=== PATIENT | male | born 1995 | race Caucasian/White ===

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

== ENCOUNTER 2017-03-09 18:59 | Emergency (ER) | payer OTHER ==
[~2017-03-09] VITALS: Ht 190.5 cm; Wt 74.3 kg
[2017-03-09 19:05] VITALS: TEMP 39.3; Ht 190.5 cm; Wt 74.3 kg
[2017-03-09] MEDS ORDERED: SODIUM CHLORIDE 0.9% 1000ML 1,000 ML IV STA (19:17)
[2017-03-09] MEDS ORDERED: CHLO1TAB50 PO (20:04)
[2017-03-09] MEDS ORDERED: IBUPROFEN 600 MG TAB PO STA (20:09)
[2017-03-09] MEDS ORDERED: ACETAMINOPHEN 500 MG TAB PO STA (20:09)
[2017-03-09 20:45] LABS: INFLUENZA B ANTIGEN Neg for Influ B (NEG)
[2017-03-09 21:18] VITALS: BP 115/50; PULSE 87; O2SAT 97
--- NOTE | 2017-03-09 23:40 | EMERGENCY ROOM VISIT NOTE ---
History Report prepared by Arnoldo: Rebecca Patel Under the Supervision of: Dr. Papo Powell M.D. First contact with patient: 19:08 Chief Complaint: ILLNESS Stated Complaint: DIZZY,ACHING ALL OVER,DEHYDRATED,NAUSEA,COUGH,FRANK History of Present Illness The patient is a 21 year old male who presents to the Emergency Room with complaints of worsening generalized illness beginning two days ago. The patient reports nausea, body aches, a headache, fever, and a cough beginning two days ago. He denies any vomiting. He also notes he has not been drinking very much fluids over the past couple days because he states, "I don't want to get up to get water". The patient did not get the flu shot this year. The patient does not have any active medical problems. Source of History: patient Onset: two days ago Position: other (generalized) Quality: other (illness) Timing: worsening Modifying Factors (Relieving): other (none) Associated Symptoms: + fevers, + headache, + cough, + nausea, No vomiting Review of Systems See HPI for pertinent positives & negatives. A total of 10 systems reviewed and were otherwise negative. Past Medical & Surgical Medical Problems: (1) No Known Active Medical Problems Family History Patient reports no known family medical history. Social History Smoking Status: Current Every Day Smoker Alcohol Use: none Marital Status: single Housing Status: lives with family Occupation Status: student Current/Historical Medications Scheduled PRN Chlorpheniramine-Phenylephrine ([place] Plus Cold), 2 TABS PO PRN UD PRN for COLD/FLU SYMPTOMS Allergies Coded Allergies: No Known Allergies (Unverified , 11/14/16) Physical Exam Vital Signs Date Time Temp Pulse Resp B/P (MAP) Pulse Ox O2 Delivery O2 Flow Rate FiO2 03/09/17 21:18 87 18 115/50 97 03/09/17 19:05 39.3 128 20 107/63 99 Room Air Physical Exam Constitutional: Vital signs reviewed. Eyes: Pupils are equal round reactive to light. Conjunctiva are noninjected. ENT: Pharynx is clear without erythema or exudate. Mucous membranes are dry. Neck supple without meningeal signs. Respiratory: Clear to auscultation bilaterally. Breath sounds are equal bilaterally. Cardiovascular: Regular rate and rhythm. No rubs or gallops. GI: Soft, nondistended and nontender. Bowel sounds are present. Musculoskeletal: No peripheral edema. No lower extremity tenderness. Integumentary: No cyanosis. Neurological: The patient is awake and alert. No focal deficits. Psychiatric: Normal affect. Medical Decision & Procedures Laboratory Results Test 03/09/17 19:55 Influenza Type A Antigen POS for Influ A (NEG) Influenza Type B Antigen Neg for Influ B (NEG) Laboratory results as reviewed by me. Medications Administered Medications (Trade) Dose Ordered Sig/Crystal Route Start Time Stop Time Status Last Admin Dose Admin Sodium Chloride 1,000 ml @ 999 mls/hr Q1H1M STAT IV 03/09/17 19:17 03/09/17 20:17 DC 03/09/17 19:40 999 MLS/HR Ibuprofen (Motrin Tab) 600 mg NOW STAT PO 03/09/17 20:09 03/09/17 20:10 DC 03/09/17 20:19 600 MG Acetaminophen (Tylenol Tab) 1,000 mg NOW STAT PO 03/09/17 20:09 03/09/17 20:10 DC 03/09/17 20:20 1,000 MG ED Course 1909: The patient was evaluated in room C9. A complete history and physical exam was performed. 1916: Ordered Sodium Chloride 1000 ml @ 999 mls/hr IV. 2007: The patient is feeling better with fluids. 2008: Ordered Tylenol tab 1000 mg PO, Motrin Tab 600 mg PO. 2047: I updated the patient on his test results. He is ready to go home. 2105: Upon reevaluation, the patient appeared to have improvement of his symptoms. I discussed tonight's findings with the patient. He verbalized agreement of the treatment plan. The patient was discharged home. Medical Decision This is a 21-year-old male who presents with flulike symptoms. Differential diagnosis includes influenza, viral syndrome, dehydration, URI, bronchitis. I did perform a limited focused review of portions of the patient's old chart on the electronic medical record. The patient has had no recent pertinent visits to this hospital. I did evaluate the patient as noted above. The patient has symptoms consistent with influenza. His mother was concerned about dehydration as he has not been eating and drinking very much. She did request that he receive hydration here. IV access was established. I did treat the patient with normal saline IV. I did treat the patient with Tylenol and Motrin for his fever. I did obtain a rapid flu test. This was positive for influenza A. I did discuss risks and benefits of Tamiflu which I did not feel was necessary indicated at this time. He and his parents were in agreement. He was discharged in good condition with a work note. Medication Reconcilliation Current Medication List: was personally reviewed by me Blood Pressure Screening Patient's blood pressure: Normal blood pressure Impression Primary Impression: Influenza A Additional Impression: Dehydration Scribe Attestation The scribe's documentation has been prepared under my direct and personally reviewed by me in its entirety. I confirm that the note above accurately reflects all work, treatment, procedures, and medical decision making performed by me. Departure Information Dispostion Home / Self-Care Referrals Matt Cueva MD (PCP) Forms HOME CARE DOCUMENTATION FORM, IMPORTANT VISIT INFORMATION, WORK / SCHOOL INSTRUCTIONS Patient Instructions ED Flu, My [facility] Additional Instructions You have been examined and treated today on an emergency basis only. This is not a substitute for, or an effort to provide, complete comprehensive medical care. It is impossible to recognize and treat all injuries or illnesses in a single emergency department visit. It is therefore important that you follow up closely with your physician. Call as soon as possible for an appointment. Return for worsening symptoms or if you develop chest pain, trouble breathing or any other concerning symptoms. Problem Qualifiers
== END 2017-03-09 21:21 | disposition home or self-care (01) ==
LOC: C.EDB 19:01 → C.EDC 21:21
DX: J10.1 Influenza due to other identified influenza virus with other respiratory manifestations (principal); E86.0 Dehydration; F17.200 Nicotine dependence, unspecified, uncomplicated